=== PATIENT | male | born 1985 | race Caucasian/White ===

== ENCOUNTER 2018-04-28 09:32 | Emergency (ER) | payer BC, OTHER ==
[2018-04-28] MEDS ORDERED: CLINDAMYCIN 900 MG INJ IM (11:00)
[2018-04-28] MEDS: DEXAMETHASONE 10 MG/ML 1 ML INJ IM (11:20)
[2018-04-28] MEDS: CLINDAMYCIN 300 MG INJ IM (11:20)
[2018-04-28] MEDS ORDERED: CLINDAMYCIN 600 MG INJ IM (11:30)
== END 2018-04-28 11:41 | disposition home or self-care (01) ==
LOC: FTE 09:32
DX: J06.9 Acute upper respiratory infection, unspecified (principal); E66.9 Obesity, unspecified; Z68.41 Body mass index [BMI] 40.0-44.9, adult
CPT/HCPCS: 96372; 99284-25

== ENCOUNTER 2018-05-01 14:01 | Emergency (ER) | payer SELFPAY, BC | END 2018-05-02 07:04 | disposition left against medical advice (07) | LOC: E/R 05-02 07:04 | DX: Z53.21 Procedure and treatment not carried out due to patient leaving prior to being seen by health care provider (principal) ==

== ENCOUNTER 2018-05-02 09:07 | Emergency (ER) | payer BC | END 2018-05-02 09:45 | disposition home or self-care (01) | LOC: FTE 09:07 | DX: J02.9 Acute pharyngitis, unspecified (principal) | CPT/HCPCS: 99283; Z7502 ==

== ENCOUNTER 2018-12-08 11:46 | Emergency (ER) | payer BC | END 2018-12-08 12:33 | disposition home or self-care (01) | LOC: E/R 11:46 | DX: L73.9 Follicular disorder, unspecified (principal); R03.0 Elevated blood-pressure reading, without diagnosis of hypertension | CPT/HCPCS: 99283; Z7502 ==